=== PATIENT | male | born 1970 | race Caucasian/White ===

== ENCOUNTER 2022-03-04 08:57 | Day surgery (SDC) | payer OTHER ==
[~2022-03-04] VITALS: Ht 182.9 cm; Wt 81.2 kg
[~2022-03-04 08:57] MED LIST: NS 1,000 ML IV ONE
[2022-03-04] MEDS ORDERED: fentaNYL 100 MCG/2 ML INJECTION As Ordered ONE (09:11)
[2022-03-04] MEDS ORDERED: propofoL 500 MG/50 ML VIAL As Ordered ONE (09:11)
[2022-03-04] MEDS ORDERED: LIDOCAINE 2% 100MG/5ML SDV (FOR ANES.) As Ordered ONE (09:11)
[2022-03-04 10:55] VITALS: BP 144/88
== END 2022-03-04 11:30 | disposition home or self-care (01) ==
LOC: M OPP 08:57
PROVIDERS: ATTEND Internal Medicine Gastroenterology
DX: Z12.11 Encounter for screening for malignant neoplasm of colon (principal); K64.0 First degree hemorrhoids; K21.9 Gastro-esophageal reflux disease without esophagitis; Z87.891 Personal history of nicotine dependence
CPT/HCPCS: 43239; 45378; 88305; J3010